=== PATIENT | female | born 1995 | race Caucasian/White ===

== ENCOUNTER 2018-11-03 14:40 | Emergency (ER) | payer OTHER ==
[2018-11-03] MEDS ORDERED: Lidocaine 2% VISCOUS* 15 ML UDC PO ONE (17:13)
[2018-11-03] MEDS ORDERED: Al Hydrox/Mg Hydrox/Simet LIQ* 30 ML UDC PO ONE (17:13)
--- NOTE | 2018-11-03 17:13 | ED ---
Throat Pain/Nasal Congestion - HPI Summary HPI Summary: Pt. is a 23 y.o female who presents to sore throat, fever, and a feeling of a lump in throat. Pt. states she developed a sore throat a few days ago and a fever. She was seen at [facility] and had a negative rapid strep per pt. Pt. notes that she has been having a pain to her epigastric area and also notes she feels a lump in her throat. Pt. state she frequently feels . - History of Current Complaint Chief Complaint: EDThroatPain Time Seen by Provider: 11/03/18 17:02 Hx Obtained From: Patient - Allergies/Home Medications Allergies/Adverse Reactions: Allergies Allergy/AdvReac Type Severity Reaction Status Date / Time melon Allergy Itching Verified 11/03/18 18:02 peas Allergy Itching Verified 11/03/18 18:02 Tree Nuts Allergy Anaphylatic Verified 11/03/18 18:01 Shock Home Medications: Home Medications Acetaminophen [Tylenol Extra Strength] 500 mg PO Q6HR 11/03/18 [History Confirmed 11/03/18] Al Hydrox/Mg Hydrox/Simet LIQ* [Maalox Plus*] 30 ml PO Q6H PRN 11/03/18 [ History Confirmed 11/03/18] Omeprazole CAP (NF) [Prilosec CAP* 20 MG] 20 mg PO DAILY 11/03/18 [History Confirmed 11/03/18] PMH/Surg Hx/FS Hx/Imm Hx Previously Healthy: Yes Infectious Disease History: No Infectious Disease History: Denies: Traveled Outside the [place] in Last 30 Days - Social History Occupation: Student Lives: Dormitory/Roommates Alcohol Use: Occasionally Substance Use Type: Reports: None Smoking Status (MU): Never Smoked Tobacco Review of Systems Positive: Fever, Chills Eyes: Negative Positive: Sore Throat Cardiovascular: Negative Negative: Palpitations, Chest Pain Respiratory: Negative Negative: Shortness Of Breath, Cough Positive: Nausea. Negative: Abdominal Pain, Vomiting Genitourinary: Negative Musculoskeletal: Negative Skin: Negative Negative: Rash Neurological: Negative All Other Systems Reviewed And Are Negative: Yes Physical Exam Triage Information Reviewed: Yes Vital Signs On Initial Exam: Initial Vitals Temp Pulse Resp BP Pulse Ox 100.8 F 98 22 128/82 98 11/03/18 14:47 11/03/18 14:47 11/03/18 14:47 11/03/18 14:47 11/03/18 14:47 Vital Signs Reviewed: Yes Appearance: Positive: Well-Appearing - Pt. sitting on stretcher in NAD. Examined in hallway. Skin: Positive: Warm, Dry Head/Face: Positive: Normal Head/Face Inspection Eyes: Positive: Normal, EOMI ENT: Positive: Other - Moderate bilateral tonsilar edema with exudates on right. Uvula midline without deviation. No trismus. No submandibular edema. Neck: Positive: Supple, Enlarged Nodes @ - bilateral cervical. Negative: Nuchal Rigidity Respiratory/Lung Sounds: Positive: Clear to Auscultation, Breath Sounds Present Cardiovascular: Positive: Normal, RRR Abdomen Description: Positive: Nontender, Soft Neurological: Positive: Normal, CN Intact II-III Psychiatric: Positive: Affect/Mood Appropriate Diagnostics - Vital Signs Vital Signs Temp Pulse Resp BP Pulse Ox 11/03/18 16:37 100.6 F 99 14 127/77 99 11/03/18 14:47 100.8 F 98 22 128/82 98 - Laboratory Result Diagrams: 11/03/18 17:23 11/03/18 17:23 Lab Statement: Any lab studies that have been ordered have been reviewed, and results considered in the medical decision making process. Re-Evaluation - Re-Evaluation First Eval Re-Evaluation Time: 19:02 Change: Improved Comment: feeling better EENT Course/Dx - Course Course Of Treatment: Pt. presenting with epigastric pain and sore throat. Epigastric pain has been on going. Sore throat x a few days with fever. Suspect pharyngitis and GERD. Pt. given a dose of decadron and GI cocktail. Will check basic labs, lipase, throat culture and mono. Pt. signed out ot Rebecca Rosas PA-C for labs and disposition. - Differential Diagnoses Differential Diagnoses: Influenza, Pharyngitis, Tonsilitis - Diagnoses Provider Diagnoses: Viral pharyngitis, GERD (gastroesophageal reflux disease) Discharge - Sign-Out/Discharge Documenting (check all that apply): Patient Departure Patient Received Moderate/Deep Sedation with Procedure: No - Discharge Plan Condition: Improved Disposition: HOME Prescriptions: Al Hydrox/Mg Hydrox/Simet LIQ* [Maalox Plus*] 30 ml PO Q6H PRN #1 udc PRN Reason: Dyspepsia Magic Mouth Was-LIS/MAAL/LIDO* 5 ml SWISH SPIT QID #100 ml Pantoprazole TAB * [Protonix TAB*] 40 mg PO DAILY #30 tab Patient Education Materials: Pharyngitis (ED), Diet for Stomach Ulcers and Gastritis (ED), Gastroesophageal Reflux Disease (ED) Referrals: [facility] [Outside] Additional Instructions: Schedule a follow up appointment with [facility] Tylenol for pain and fever as directed Increase fluids and rest Will call if throat culture is positive can maalox 30ml every 6 hours as needed for epigastric pain take magic mouth wash swish and spit 5ml every 6 hours as needed for throat pain Return to ER if symptoms change or worsen - Billing Disposition and Condition Condition: IMPROVED Disposition: Home
[2018-11-03] MEDS ORDERED: Dexamethasone TAB* 4 MG PO ONE (17:14)
[2018-11-03 17:29] LABS: ABS Eosinophils 0.2 10^3/ul (0-0.6); ABS Lymphocytes 1.1 10^3/ul (1.0-4.8); ABS Monocytes 0.9 10^3/ul (0-0.8); ABS Neutrophils 6.3 10^3/ul (1.5-7.7); Eosinophil % 2.7 %; Hematocrit 36 % (35-47); Hemoglobin 12.4 g/dL (12.0-16.0); Lymphocyte % 13.1 %; Mean Corpuscular HGB Conc 35 g/dL (31-36); Mean Corpuscular Hemoglobin 31 pg (27-31); Mean Corpuscular Volume 91 fL (80-97); Mean Platelet Volume 7.4 fL (7.4-10.4); Platelet Count 168 10^3/uL (150-450); Red Blood Count 3.95 10^6 /uL (3.70-4.87); Red Cell Distribution Width 13 % (10.5-15); White Blood Count 8.5 10^3/uL (3.5-10.8)
[2018-11-03 17:47] LABS: Albumin 4.1 g/dL (3.2-5.2); Albumin/Globulin Ratio 1.4 (1-3); BUN/Creatinine Ratio 17.2 (8-20); Calcium 9.1 mg/dL (8.6-10.3); EGFR African American 136.8 (>60); EGFR Non-African American 113.1 (>60); Globulin 2.9 g/dL (2-4); Potassium 3.7 mmol/L (3.5-5.0); Total Bilirubin 0.3 mg/dL (0.2-1.0)
[2018-11-03] MEDS ORDERED: Acetaminophen ADULT LIQ* 650 MG/20.3 ML UDC PO ONE (17:54)
--- NOTE | 2018-11-03 17:58 | ED ---
Progress - Progress Note Progress Note: patient signed out by Ty RHODES pending lab work and reevaluation patient was able to swallow medications and tolerated them well and felt better after medications Re-Evaluation - Re-Evaluation First Eval Re-Evaluation Time: 19:02 Change: Improved Comment: feeling better Course/Dx - Course Course Of Treatment: patient signed out by ty RHODES pending lab work and re- evaluation. mono was negative. wbc normal. feels better after lidocaine and was able to tolerated meds. discussed will add on maalox for epigastric pain and magic mouth wash for throat pain. discussed likely combination of gerd and viral illness. told [facility]. patient understand and agrees with plan. - Diagnoses Provider Diagnoses: Viral pharyngitis, GERD (gastroesophageal reflux disease) Discharge - Sign-Out/Discharge Documenting (check all that apply): Patient Departure, Receiving Sign-Out Receiving patient FROM: Ty Starkey Patient Received Moderate/Deep Sedation with Procedure: No - Discharge Plan Condition: Improved Disposition: HOME Prescriptions: Al Hydrox/Mg Hydrox/Simet LIQ* [Maalox Plus*] 30 ml PO Q6H PRN #1 udc PRN Reason: Dyspepsia Magic Mouth Was-LIS/MAAL/LIDO* 5 ml SWISH SPIT QID #100 ml Pantoprazole TAB * [Protonix TAB*] 40 mg PO DAILY #30 tab Patient Education Materials: Pharyngitis (ED), Diet for Stomach Ulcers and Gastritis (ED), Gastroesophageal Reflux Disease (ED) Referrals: [facility] [Outside] Additional Instructions: Schedule a follow up appointment with [facility] Tylenol for pain and fever as directed Increase fluids and rest Will call if throat culture is positive can maalox 30ml every 6 hours as needed for epigastric pain take magic mouth wash swish and spit 5ml every 6 hours as needed for throat pain Return to ER if symptoms change or worsen - Billing Disposition and Condition Condition: IMPROVED Disposition: Home
[2018-11-03 19:38] VITALS: BP 140/89
--- NOTE | 2018-11-06 10:09 | PN ---
Progress Note - Progress Note Date of Service: 11/03/18 Note: Pt. seen in ER 11/03 for sore throat and acid reflux. Throat culture growing H. influenzae. I called and spoke with pt. today at 1005 and discussed results. Pt. states her sore throat and fever have resolved. Pt. states she has an apt. today with GI. Will note treat at this time since sxs have resolved.
== END 2018-11-03 19:37 | disposition home or self-care (01) ==
LOC: ED 14:40
DX: K21.9 Gastro-esophageal reflux disease without esophagitis (principal); J02.8 Acute pharyngitis due to other specified organisms
CPT/HCPCS: 36415; 80053; 83690; 85025; 86308; 87070; 87077; 87185; 99283; A9270-GY; J8540